=== PATIENT | female | born 1980 | race African-American/Black ===

== ENCOUNTER 2017-05-05 09:58 | Emergency (ER) | payer OTHER ==
[~2017-05-05] VITALS: Ht 170.2 cm; Wt 79.0 kg
[2017-05-05 11:05] VITALS: BP 124/78
[2017-05-05] MEDS ORDERED: ONDANSETRON 4MG ODT PO ONE (13:15)
== END 2017-05-05 14:48 | disposition home or self-care (01) ==
LOC: ER 12:04
DX: B34.9 Viral infection, unspecified (principal); R05 Cough; R19.7 Diarrhea, unspecified; D64.9 Anemia, unspecified; F17.200 Nicotine dependence, unspecified, uncomplicated
CPT/HCPCS: 99283; Q0162